=== PATIENT | female | born 1975 | race Asian ===

== ENCOUNTER 2018-01-08 17:40 | Emergency (ER) | payer BC, OTHER ==
[2018-01-08 17:58] VITALS: BP 107/79
--- NOTE | 2018-01-08 18:34 | RAD ---
HISTORY: Productive cough COMPARISONS: October 05, 2015 VIEWS: 3: frontal dual-energy view of the chest FINDINGS: CARDIOMEDIASTINAL SILHOUETTE: The cardiomediastinal silhouette is normal. KAYLYNN: The kaylynn are normal. PLEURA: The costophrenic angles are sharp. No pleural abnormalities are noted. LUNG PARENCHYMA: The lungs are clear. ABDOMEN: The upper abdomen is clear. There is no subphrenic gas. BONES AND SOFT TISSUES: No bone or soft tissue abnormalities are noted. OTHER: None. IMPRESSION: NO ACTIVE CARDIOPULMONARY DISEASE.
--- NOTE | 2018-01-08 19:20 | UC ---
Judy Velazquez Gabriel, scribed for Bharta Diaz MD on 01/08/18 at 1812 . HPI Febrile Illness - HPI Summary HPI Summary: This patient is a 42 year old F [place] [facility] [place] with a chief complaint of general illness since 01-05-18. The patient rates the pain 9/10 in severity. Patient reports fever, PERSON, CP, productive cough, back ache, chills, and chest congestion. Patient has had recent exposure to strep throat. - History of Current Complaint Chief Complaint: UCRespiratory Time Seen by Provider: 01/08/18 18:07 Hx Obtained From: Patient Hx Last Menstrual Period: 12/24/17 Onset/Duration: Still Present Timing: Constant Temperature: 99.6 F Initial Severity: Mild Current Severity: None Pain Intensity: 9 Pain Scale Used: 0-10 Numeric Associated Signs and Symptoms: Other: - fever, PERSON, CP, productive cough, back ache, chills, and chest congestion - Allergy/Home Medications Allergies/Adverse Reactions: Allergies Allergy/AdvReac Type Severity Reaction Status Date / Time No Known Allergies Allergy Verified 01/08/18 17:58 PMH/Surg Hx/FS Hx/Imm Hx Other History Of: Negative For: HIV, Hepatitis B, Hepatitis C - Surgical History Surgical History: None - Family History Known Family History: Positive: Diabetes Negative: Cardiac Disease, Hypertension, Renal Disease, Respiratory Disease, Seizure Disorder, Blood Disorder - Social History Occupation: Employed Full-time Lives: With Family Alcohol Use: Rare Substance Use Type: None Smoking Status (MU): Never Smoked Tobacco Review of Systems Constitutional: Fever, Chills Respiratory: Cough, Other - chest congestion Cardiovascular: Chest Pain Musculoskeletal: Other: - back aches Neurological: Headache All Other Systems Reviewed And Are Negative: Yes Physical Exam Triage Information Reviewed: Yes Vital Signs: Initial Vital Signs Temp 99.6 F 01/08/18 17:55 Pulse 78 01/08/18 17:55 Resp 18 01/08/18 17:55 BP 107/79 01/08/18 17:55 Pulse Ox 98 01/08/18 17:55 Vital Signs Reviewed: Yes - Additional Comments VITAL SIGNS: Reviewed. GENERAL: Patient is a well developed and nourished F who is lying comfortable in the stretcher. Patient is not in any acute respiratory distress. HEAD AND FACE: Normocephalic EYES: PERRLA, EOMI x 2. EARS: Hearing grossly intact. MOUTH: Oropharynx within normal limits. NECK: Supple, trachea is midline, no adenopathy, no JVD, no carotid bruit. CHEST: Symmetric, no tenderness at palpation LUNGS: Clear to auscultation bilaterally. No wheezing or crackles. CVS: Regular rate and rhythm, S1 and S2 present, no murmurs or gallops appreciated. ABDOMEN: Soft, non-tender. Bowel sounds are normal. No abdominal abnormal pulsations. EXTREMITIES: Full ROM in all major joints, no edema, no cyanosis or clubbing. NEURO: Alert and oriented x 3. No acute neurological deficits. Speech is normal and follows commands. SKIN: Dry and warm Diagnostics - Radiology CXR Radiology Interpretation Completed By: Radiologist - no active cardiopulmonary disease. Dr. Diaz has reviewed this report. Course/Dx - Course Assessment/Plan: The patient is choosing to leave before he flu test is complete even after being advised against it. She will be happy to take the Tamiflu on just clinical diagnoses. CXR reveals no active cardiopulmonary disease. I discussed all the findings and test results with the patient. Pt was instructed to return to the urgent care or go to ER immediately if any of the symptoms return or worsens. Plan of care was discussed with the patient and pt understands and agrees. All questions were answered to patient satisfaction. There were no further complaints or concerns. - Diagnoses Clinic Provider Diagnoses: influenza Discharge - Discharge Plan Condition: Stable Disposition: HOME Prescriptions: Oseltamivir CAP* [Tamiflu CAP*] 75 mg PO BID #10 cap Patient Education Materials: Influenza (DC) Referrals: Ozzie Stallings MD [Primary Care Provider] - Additional Instructions: Take medications as instructed Increase your fluid intake Return to the if symptoms worsen The documentation as recorded by the Judy kramer Gabriel accurately reflects the service I personally performed and the decisions made by me, Bharat Diaz MD.
== END 2018-01-08 19:27 | disposition home or self-care (01) ==
LOC: UCEAST 17:40
DX: J11.1 Influenza due to unidentified influenza virus with other respiratory manifestations (principal)
CPT/HCPCS: 71046; 99211; G0463

== ENCOUNTER 2018-11-09 17:10 | Emergency (ER) | payer OTHER ==
[2018-11-09] MEDS ORDERED: Ibuprofen TAB* 600 MG PO ONE (18:04)
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
[2018-11-09 18:58] VITALS: BP 124/74
== END 2018-11-09 18:57 | disposition home or self-care (01) ==
LOC: ED 17:10
DX: R51 Headache (principal); M54.6 Pain in thoracic spine; V43.52XA Car driver injured in collision with other type car in traffic accident, initial encounter; Y92.410 Unspecified street and highway as the place of occurrence of the external cause; M62.838 Other muscle spasm
CPT/HCPCS: 72070; 99282; A9270-GY